=== PATIENT | female | born 1995 | race African-American/Black ===

== ENCOUNTER 2019-11-16 18:00 | Emergency (ER) | payer OTHER ==
[2019-11-16 18:09] VITALS: BMI 42.5
--- NOTE | 2019-11-16 18:57 | PDOC ---
History of Present Illness - General History Source: Patient Exam Limitations: No Limitations <Nahomy Steve - Last Filed: 11/16/19 18:51> <KrissyJorge Alberto hutton - Last Filed: 11/17/19 10:27> - General Chief Complaint: Lightheaded Stated Complaint: DIZZY Time Seen by Provider: 11/16/19 18:22 Past History - Psycho Social/Smoking Cessation Hx Smoking History: Never smoked Information on smoking cessation initiated: No Hx Alcohol Use: No Drug/Substance Use Hx: No Substance Use Type: None <Nahomy Steve - Last Filed: 11/16/19 18:51> <KrissyJorge Alberto hutton - Last Filed: 11/17/19 10:27> - Past Medical History Allergies/Adverse Reactions: Allergies Allergy/AdvReac Type Severity Reaction Status Date / Time No Known Allergies Allergy Verified 11/16/19 18:05 Home Medications: Ambulatory Orders NK [No Known Home Medication] 11/16/19 *Physical Exam - Vital Signs Last Vital Signs Temp Pulse Resp BP Pulse Ox 98.2 F 94 H 17 169/96 98 11/16/19 18:05 11/16/19 18:05 11/16/19 18:05 11/16/19 18:05 11/16/19 18:05 - Physical Exam General Appearance: Yes: Obese. No: Apparent Distress HEENT: positive: ALVARO, TMs Normal, Other (no nystagmus) Respiratory/Chest: positive: Lungs Clear, Normal Breath Sounds. negative: Respiratory Distress Cardiovascular: positive: Regular Rhythm, Regular Rate, S1, S2. negative: Murmur Neurologic: positive: funeral service manager II-XII NML intact, Fully Oriented, Alert, Normal Mood/ Affect, Motor Strength 5/5, Other (normal gait) <Nahomy Steve - Last Filed: 11/16/19 18:51> - Vital Signs Last Vital Signs Temp Pulse Resp BP Pulse Ox 97.6 F 95 H 16 129/82 100 11/16/19 18:58 11/16/19 18:58 11/16/19 18:58 11/16/19 18:58 11/16/19 18:58 <KrissyPaul huttonan - Last Filed: 11/17/19 10:27> Medical Decision Making - Medical Decision Making 24 y/o F with no significant past medical history presents with vertigo from this morning. Vertigo is worse with lying down and with head movement. Positive nausea. Went to urgent care today and was prescribed meclizine 25 mg 3 times daily. States she took 2 doses of meclizine the first dose at 2 PM the second dose at 5:30 PM. Came to ED yesterday as she still feeling dizzy.Denies fever, URI symptoms, ear pain, shortness of breath, chest pain, abdominal pain, vomiting, numbness/tingling/weakness of the extremities, gait changes, headache. Likely this is BPPV Patient states vertigo worse from laying to sitting up position So this was attempted and patient mentions she was actually feeing better now and not as dizzy as before Not suspicious for anemia, electrolyte abnormality, ACS or other acute pathology BPPV has improved with meclizine Advised will need ENT f/u for Jose Eduardo Maneuver Repeat BP was 129/82 11/16/19 18:52 <Nahomy Steve - Last Filed: 11/16/19 18:51> - Medical Decision Making The patient was seen and evaluated in conjunction with STEPHEN Steve under my direct supervision, ancillary studies were reviewed. I agree with the plan as outlined by STEPHEN Steve . <Jorge Alberto Rey - Last Filed: 11/17/19 10:27> Discharge - Discharge Information Problems reviewed: Yes - Admission No - Additional Discharge Information Prescription Drug Monitoring Program (I-STOP) results: I-STOP not reviewed <Nahomy Steve - Last Filed: 11/16/19 18:51> <Jorge Alberto Rey - Last Filed: 11/17/19 10:27> - Discharge Information Clinical Impression/Diagnosis: BPV (benign positional vertigo) Qualifiers: Laterality: unspecified laterality Qualified Code(s): H81.10 - Benign paroxysmal vertigo, unspecified ear Condition: Stable Disposition: HOME - Follow up/Referral Referrals: Teddy Vásquez MD [Staff Physician] - 2 Days - Patient Discharge Instructions Patient Printed Discharge Instructions: Benign Paroxysmal Positional Vertigo, How to Perform Jose Eduardo Maneuver Additional Instructions: Thank you for choosing [facility]. It was a pleasure taking care of you. Continue Meclizine as needed for vertigo Please follow-up with ENT for further evaluation Return to the Emergency Department if your symptoms worsen or persist or have other concerning symptoms.
[2019-11-16 19:01] VITALS: BP 129/82; PULSE 95; TEMP 97.6
== END 2019-11-16 19:01 | disposition home or self-care (01) ==
LOC: JER 18:00
DX: H81.10 Benign paroxysmal vertigo, unspecified ear (principal)
CPT/HCPCS: 99282-25

== ENCOUNTER 2020-03-03 01:08 | Emergency (ER) | payer OTHER ==
[2020-03-03 01:29] VITALS: BMI 43.0
--- NOTE | 2020-03-03 01:40 | PDOC ---
History of Present Illness - General Chief Complaint: Nausea/Vomiting Stated Complaint: VOMITING, LEG PAIN Time Seen by Provider: 03/03/20 01:21 History Source: Patient - History of Present Illness Initial Comments: 03/03/20 01:42 24 year old female Complaining of headache and vomiting since 10 AM. Patient reports that she has a history of migraine headache and vertigo. Patient took Excedrin with no significant relief. Patient reports that normally Excedrin will help with headaches. Denies dizziness at this time, denies NVD, urinary symptoms. Patient reports that she has a past medical history of hypertension currently not on medication 03/03/20 03:01 Past History - Past Medical History Allergies/Adverse Reactions: Allergies Allergy/AdvReac Type Severity Reaction Status Date / Time No Known Allergies Allergy Verified 03/03/20 01:29 Home Medications: Ambulatory Orders NK [No Known Home Medication] 11/16/19 CVA: No COPD: No HTN: Yes Other medical history: migrains - Psycho Social/Smoking Cessation Hx Smoking History: Never smoked Have you smoked in the past 12 months: No Information on smoking cessation initiated: No Hx Alcohol Use: No Drug/Substance Use Hx: No Substance Use Type: None *Physical Exam - Vital Signs Last Vital Signs Temp Pulse Resp BP Pulse Ox 99.0 F 117 H 17 156/86 100 03/03/20 01:27 03/03/20 01:27 03/03/20 01:27 03/03/20 01:27 03/03/20 01:27 - Physical Exam General Appearance: Yes: Appropriately Dressed Neck: positive: Trachea midline, Supple, Other (no nuchal rigidity). negative: Lymphadenopathy (R), Lymphadenopathy (L), Rigidity, Tender lateral, Tender midline Respiratory/Chest: positive: Lungs Clear, Normal Breath Sounds Cardiovascular: positive: Regular Rhythm, Regular Rate Extremity: positive: Normal Capillary Refill, Normal Inspection, Normal Range of Motion Integumentary: positive: Normal Color, Dry, Warm Neurologic: positive: tick eradicator II-XII NML intact, Fully Oriented, Alert, Normal Mood/Affect, Normal Response, Motor Strength 5/5 ED Treatment Course - LABORATORY CBC & Chemistry Diagram: 03/03/20 02:40 03/03/20 02:40 Medical Decision Making - Medical Decision Making A: headache P: cbc cmp Ua urine ct head: negative 03/03/20 03:20 UA: blood. patient is menstruating. 03/03/20 04:13 03/03/20 04:41 Patient is now feeling a lot better. Reports no headache no neck pain no vomiting. Patient is able to tolerate p.o. Gatorade will DC home a referral for neurology has been given to her since she has frequent headaches. Discharge - Discharge Information Problems reviewed: Yes Clinical Impression/Diagnosis: Headache Qualifiers: Headache type: unspecified Headache chronicity pattern: acute headache Intractability: intractable Qualified Code(s): R51 - Headache Disposition: HOME - Follow up/Referral Referrals: Carlos Toussaint MD [Primary Care Provider] - Norman Yun MD [Staff Physician] - Call tomorrow - Patient Discharge Instructions Patient Printed Discharge Instructions: Migraine -- Adult - Post Discharge Activity
--- NOTE | 2020-03-03 01:51 | PDOC ---
*Physical Exam - Vital Signs Last Vital Signs Temp Pulse Resp BP Pulse Ox 99.0 F 117 H 17 156/86 100 03/03/20 01:27 03/03/20 01:27 03/03/20 01:27 03/03/20 01:27 03/03/20 01:27 ED Treatment Course - LABORATORY CBC & Chemistry Diagram: 03/03/20 02:40 03/03/20 02:40 Medical Decision Making - Medical Decision Making 03/03/20 01:51 Patient seen by the advanced practice provider under my supervision. Ancillary testing reviewed as necessary. I agree with plan as outlined by the advanced practice provider. Discharge - Discharge Information Problems reviewed: Yes Clinical Impression/Diagnosis: Headache Qualifiers: Headache type: unspecified Headache chronicity pattern: acute headache Intractability: intractable Qualified Code(s): R51 - Headache Condition: Guarded Disposition: HOME - Follow up/Referral Referrals: Norman Yun MD [Staff Physician] - Call tomorrow Carlos Toussaint MD [Primary Care Provider] - - Patient Discharge Instructions Patient Printed Discharge Instructions: Migraine -- Adult - Post Discharge Activity
[2020-03-03 01:58] LABS: HCG,QUALITATIVE URINE Negative
[2020-03-03] MEDS ORDERED: SODIUM CHLORIDE 1,000 ML IV STA (02:03)
[2020-03-03] MEDS ORDERED: METOCLOPRAMIDE HCL INJECTION 10 MG/2 ML VIAL IVPB ONE (02:03)
[2020-03-03 02:14] LABS: EPI CELLS 24 /uL (0-25.1); HYALINE CASTS 0 /uL (0-3.1); PH,URINE 6.5 (5.0-8.0); URINE APPEARANCE CLEAR; URINE BACTERIA 307 /uL (0-1359); URINE BILIRUBIN NEGATIVE (NEGATIVE); URINE COLOR YELLOW; URINE GLUCOSE (UA) NEGATIVE (NEGATIVE); URINE KETONE NEGATIVE (NEGATIVE); URINE LEUK ESTERASE 1+ (NEGATIVE); URINE NITRITE NEGATIVE (NEGATIVE); URINE PROTEIN 1+ (NEGATIVE); URINE RBC 2570 /uL (0-23.9); URINE UROBILINOGEN 0.2 mg/dL (0.2-1.0); URINE WBC 72 /uL (0-25.8)
[2020-03-03] MEDS ORDERED: METOCLOPRAMIDE HCL INJECTION 10 MG/2 ML VIAL ONE (02:24)
[2020-03-03 02:54] LABS: BASO % 0.6 % (0-2.0); EOS % 0.1 % (0-4.5); HEMATOCRIT 40.8 % (32.4-45.2); HEMOGLOBIN 13.5 GM/dL (10.7-15.3); LYMPH % 9.2 % (8-40); MCH 28.8 pg (25.7-33.7); MCHC 33.2 g/dl (32.0-36.0); MEAN CELL VOLUME 86.7 fl (80-96); MEAN PLT VOLUME 8.1 fl (7.5-11.1); MONO % 2.9 % (3.8-10.2); NEUT % 87.2 % (42.8-82.8); PLATELET COUNT 392 K/MM3 (134-434); RBC 4.71 M/mm3 (3.60-5.2); RDW 13.2 % (11.6-15.6); WHITE BLOOD COUNT 12.1 K/mm3 (4.0-10.0)
[2020-03-03 03:23] LABS: ALBUMIN 4.3 g/dl (3.4-5.0); BILIRUBIN,TOTAL 0.4 mg/dL (0.2-1); BLOOD UREA NITROGEN 8.1 mg/dL (7-18); CALCIUM 9.7 mg/dL (8.5-10.1); POTASSIUM 4.5 mmol/L (3.5-5.1); TOT PROT 8.8 g/dl (6.4-8.2)
[2020-03-03] MEDS ORDERED: KETOROLAC TROMETHAMINE 30 MG/1 ML VIAL IVPB ONE (03:43)
[2020-03-03 04:53] VITALS: BP 127/74; PULSE 102; TEMP 99.1
== END 2020-03-03 04:53 | disposition home or self-care (01) ==
LOC: JER 01:08
PROC: 3E033NZ Introduction of Analgesics, Hypnotics, Sedatives into Peripheral Vein, Percutaneous Approach (ICD-10-PCS; principal; 2020-03-03)
PROC: 3E0337Z Introduction of Electrolytic and Water Balance Substance into Peripheral Vein, Percutaneous Approach (ICD-10-PCS; 2020-03-03)
PROC: 3E033GC Introduction of Other Therapeutic Substance into Peripheral Vein, Percutaneous Approach (ICD-10-PCS; 2020-03-03)
DX: R51 Headache (principal)
CPT/HCPCS: 36415; 70450-TC; 80053; 81003; 84703; 85025; 99285-25

== ENCOUNTER 2020-11-08 23:17 | Emergency (ER) | payer OTHER ==
[2020-11-08 23:41] VITALS: TEMP 98.6; BMI 42.0
[2020-11-09] MEDS ORDERED: LACTATED RINGERS SOLUTION 1000 ML INFUS.BAG IV ONE (00:17)
[2020-11-09 02:18] VITALS: BP 105/72; PULSE 93
== END 2020-11-09 02:18 | disposition home or self-care (01) ==
LOC: JER 23:17
DX: R55 Syncope and collapse (principal)
CPT/HCPCS: 93005; 93010; 99284-25

== ENCOUNTER 2022-07-30 13:35 | Emergency (ER) | payer OTHER ==
[2022-07-30 14:12] VITALS: BP 153/87; PULSE 90; RESP 18; TEMP 97.2; BMI 41.3
[2022-07-30 16:24] LABS: BASO % 0.8 % (0-2.0); EOS % 0.4 % (0-4.5); HEMATOCRIT 37.6 % (32.4-45.2); HEMOGLOBIN 12.7 GM/dL (10.7-15.3); LYMPH % 21.3 % (8-40); MCH 29.8 pg (25.7-33.7); MCHC 33.7 g/dl (32.0-36.0); MEAN CELL VOLUME 88.4 fl (80-96); MEAN PLT VOLUME 7.5 fl (7.5-11.1); MONO % 5.6 % (3.8-10.2); NEUT % 71.9 % (42.8-82.8); PLATELET COUNT 422 10^3/uL (134-434); RBC 4.26 M/mm3 (3.60-5.2); WHITE BLOOD COUNT 10.1 K/mm3 (4.0-10.0)
[2022-07-30 16:25] LABS: EPI CELLS >36 /uL (0-25.1); HYALINE CASTS 1 /uL (0-3.1); URINE APPEARANCE CLOUDY; URINE BACTERIA 670 /uL (0-1359); URINE BILIRUBIN NEGATIVE (NEGATIVE); URINE COLOR YELLOW; URINE GLUCOSE (UA) NEGATIVE (NEGATIVE); URINE KETONE 2+ (NEGATIVE); URINE LEUK ESTERASE TRACE (NEGATIVE); URINE NITRITE NEGATIVE (NEGATIVE); URINE PROTEIN 1+ (NEGATIVE); URINE RBC 439 /uL (0-23.9); URINE WBC 42 /uL (0-25.8)
[2022-07-30 16:37] LABS: HCG,QUALITATIVE URINE POSITIVE
[2022-07-30 17:14] LABS: BLOOD UREA NITROGEN 7.3 mg/dL (7-18); CALCIUM 9.7 mg/dL (8.5-10.1); CREATININE 0.8 mg/dL (0.55-1.3)
== END 2022-07-30 21:12 | disposition home or self-care (01) ==
LOC: JER 13:35
DX: O26.851 Spotting complicating pregnancy, first trimester (principal); O23.41 Unspecified infection of urinary tract in pregnancy, first trimester; Z3A.01 Less than 8 weeks gestation of pregnancy
CPT/HCPCS: 36415; 76817-TC; 80048; 81003; 84702; 84703; 85025; 86850; 86900; 86901; 87086; 99284-25

== ENCOUNTER 2022-08-01 07:23 | Emergency (ER) | payer OTHER ==
[2022-08-01 07:41] VITALS: BP 136/88; PULSE 85; RESP 18; TEMP 97.9; BMI 41.3
[2022-08-01 09:49] LABS: EPI CELLS 18 /uL (0-25.1); HYALINE CASTS 2 /uL (0-3.1); PH,URINE 5.5 (5.0-8.0); URINE APPEARANCE CLOUDY; URINE BACTERIA 583 /uL (0-1359); URINE BILIRUBIN NEGATIVE (NEGATIVE); URINE COLOR YELLOW; URINE GLUCOSE (UA) NEGATIVE (NEGATIVE); URINE KETONE NEGATIVE (NEGATIVE); URINE LEUK ESTERASE 2+ (NEGATIVE); URINE NITRITE NEGATIVE (NEGATIVE); URINE PROTEIN 1+ (NEGATIVE); URINE RBC 5433 /uL (0-23.9); URINE WBC 137 /uL (0-25.8)
[2022-08-01] MEDS ORDERED: NITROFURANTOIN MACROCRYSTAL 50 MG CAPSULE (FP) PO SCH (10:00)
== END 2022-08-01 10:24 | disposition home or self-care (01) ==
LOC: JER 07:23 → JERFT 07:23
DX: O03.9 Complete or unspecified spontaneous abortion without complication (principal); Z3A.00 Weeks of gestation of pregnancy not specified
CPT/HCPCS: 36415; 81003; 84702; 87086; 87186; 99283-25

== ENCOUNTER 2024-04-06 21:41 | Emergency (ER) | payer OTHER ==
[2024-04-06 21:49] VITALS: BP 135/84; PULSE 105; RESP 16; TEMP 98.4; BMI 40.6
[2024-04-06 22:04] LABS: EPI CELLS >36 /uL (0-25.1); HYALINE CASTS 0 /uL (0-3.1); PH,URINE 5.5 (5.0-8.0); URINE APPEARANCE CLOUDY; URINE BACTERIA 499 /uL (0-1359); URINE BILIRUBIN NEGATIVE (NEGATIVE); URINE COLOR YELLOW; URINE GLUCOSE (UA) NEGATIVE (NEGATIVE); URINE KETONE TRACE (NEGATIVE); URINE LEUK ESTERASE 2+ (NEGATIVE); URINE NITRITE NEGATIVE (NEGATIVE); URINE PROTEIN NEGATIVE (NEGATIVE); URINE RBC 26 /uL (0-23.9); URINE WBC 86 /uL (0-25.8)
[2024-04-06] MEDS ORDERED: CEPHALEXIN MONOHYDRATE 500 MG CAPSULE (UD) ONE (23:38)
[2024-04-06] MEDS: CEPHALEXIN MONOHYDRATE 500 MG CAPSULE (UD) PO ONE (23:39)
== END 2024-04-07 01:20 | disposition home or self-care (01) ==
LOC: JER 21:41 → JERFT 21:41 → JER 04-07 01:20
DX: O23.41 Unspecified infection of urinary tract in pregnancy, first trimester (principal); Z3A.01 Less than 8 weeks gestation of pregnancy
CPT/HCPCS: 36415; 76801-TC; 76815; 81003; 84702; 84703; 87086; 87491; 87591; 87661; 99284-25

== ENCOUNTER 2024-05-23 08:21 | Emergency (ER) | payer OTHER ==
[2024-05-23 08:35] VITALS: RESP 20; BMI 42.3
[2024-05-23 09:19] LABS: BASO % 0.5 % (0-2.0); EOS % 0.4 % (0-4.5); HEMATOCRIT 36.9 % (32.4-45.2); HEMOGLOBIN 12.2 GM/dL (10.7-15.3); LYMPH % 18.6 % (8-40); MCH 29.2 pg (25.7-33.7); MCHC 32.9 g/dl (32.0-36.0); MEAN CELL VOLUME 88.5 fl (80-96); MEAN PLT VOLUME 7.4 fl (7.5-11.1); MONO % 4.2 % (3.8-10.2); NEUT % 76.3 % (42.8-82.8); PLATELET COUNT 341 10^3/uL (134-434); RBC 4.17 M/mm3 (3.60-5.2); RDW 13.2 % (11.6-15.6); WHITE BLOOD COUNT 13.4 K/mm3 (4.0-10.0)
[2024-05-23 09:21] LABS: EPI CELLS >36 /uL (0-25.1); HYALINE CASTS 0 /uL (0-3.1); PH,URINE 6.5 (5.0-8.0); URINE APPEARANCE CLEAR; URINE BACTERIA 484 /uL (0-1359); URINE BILIRUBIN NEGATIVE (NEGATIVE); URINE COLOR YELLOW; URINE GLUCOSE (UA) NEGATIVE (NEGATIVE); URINE KETONE NEGATIVE (NEGATIVE); URINE LEUK ESTERASE 1+ (NEGATIVE); URINE NITRITE NEGATIVE (NEGATIVE); URINE PROTEIN NEGATIVE (NEGATIVE); URINE RBC 14 /uL (0-23.9); URINE WBC 14 /uL (0-25.8)
[2024-05-23 10:27] LABS: HCG,QUALITATIVE URINE Positive
[2024-05-23 13:37] VITALS: BP 116/68; PULSE 93; TEMP 97.8
[2024-05-23 13:49] LABS: EPI CELLS >36 /uL (0-25.1); HYALINE CASTS 2 /uL (0-3.1); URINE APPEARANCE CLEAR; URINE BACTERIA 686 /uL (0-1359); URINE BILIRUBIN NEGATIVE (NEGATIVE); URINE COLOR YELLOW; URINE GLUCOSE (UA) NEGATIVE (NEGATIVE); URINE KETONE TRACE (NEGATIVE); URINE LEUK ESTERASE TRACE (NEGATIVE); URINE NITRITE NEGATIVE (NEGATIVE); URINE PROTEIN TRACE (NEGATIVE); URINE RBC 9 /uL (0-23.9); URINE UROBILINOGEN 0.2 mg/dL (0.2-1.0); URINE WBC 26 /uL (0-25.8)
[2024-05-23] MEDS ORDERED: CEPHALEXIN MONOHYDRATE 500 MG CAPSULE (UD) ONE (13:59)
[2024-05-23] MEDS: CEPHALEXIN MONOHYDRATE 500 MG CAPSULE (UD) PO ONE (14:05)
== END 2024-05-23 14:33 | disposition home or self-care (01) ==
LOC: JER 08:21
DX: O20.9 Hemorrhage in early pregnancy, unspecified (principal); O23.41 Unspecified infection of urinary tract in pregnancy, first trimester; Z3A.13 13 weeks gestation of pregnancy
CPT/HCPCS: 36415; 76801-TC; 81003; 84702; 84703; 85025; 86850; 86900; 86901; 87086; 99284-25

== ENCOUNTER 2024-08-15 19:20 | Emergency (ER) | payer OTHER ==
[2024-08-15 19:26] VITALS: BP 119/78; PULSE 101; RESP 18; TEMP 97.6; BMI 45.3
[2024-08-15] MEDS ORDERED: POLYETHYLENE GLYCOL (HEALTHYLAX) 3350 17 GM PACKET ONE (20:07)
[2024-08-15] MEDS: POLYETHYLENE GLYCOL (HEALTHYLAX) 3350 17 GM PACKET PO SCH (20:14)
== END 2024-08-15 20:23 | disposition home or self-care (01) ==
LOC: JERFT 19:20
DX: O99.612 Diseases of the digestive system complicating pregnancy, second trimester (principal); K59.00 Constipation, unspecified; Z3A.25 25 weeks gestation of pregnancy
CPT/HCPCS: 99283-25